=== PATIENT | female | born 1985 | race Caucasian/White ===

== ENCOUNTER → 2023-05-10 | Outpatient (CLI) | payer OTHER, SELFPAY ==
--- NOTE | 2023-05-10 15:41 | RAD_ITS ---
STUDY: X-RAY - LUMBAR SPINE REASON FOR EXAM: Female, 38 years old. Low back pain. TECHNIQUE: 6 view(s) of the lumbar spine were obtained. COMPARISON: None FINDINGS: Normal lumbar lordosis. No substantial scoliosis. Normal vertebral alignment. Mild lower thoracic and lumbosacral facet sclerosis with minimal intervertebral disc space narrowing at L4-5 and to the greatest degree L5-S1. Phleboliths. RAD/L/S Spine Min 4 Views IMPRESSION: Mild lower lumbosacral spondylosis. Electronically Signed: Austin Padilla MD at 14:13 EST ,
== END | disposition home or self-care (01) ==
PROVIDERS: Referring Provider Chiropractor Orthopedic; Visit Provider Chiropractor Orthopedic
DX: M99.03 Segmental and somatic dysfunction of lumbar region (principal); M54.50 Low back pain, unspecified
CPT/HCPCS: 72110